=== PATIENT | female | born 1970 | race Caucasian/White ===

== ENCOUNTER 2016-10-13 08:46 | Emergency (ER) | payer MEDICAID ==
[~2016-10-13] VITALS: Ht 157.5 cm; Wt 78.9 kg
[~2016-10-13 08:46] MED LIST: METH40TA14
[2016-10-13 08:49] VITALS: BP_SYST 195
--- NOTE | 2016-10-13 08:55 | NUR ---
Patient to ER bed 3 to gown for evaluation. Side rails up. Report given to Monique LANDEROS.
--- NOTE | 2016-10-13 08:59 | NUR ---
ER Dr. Duong at bedside examining patient.
--- NOTE | 2016-10-13 09:00 | NUR ---
Stable condition, alert and oriented x4. States took blood pressure last night and systolic was around 185 and that she has been feeling bloated since she has not been taking blood pressure medication (hydrochlorathiazide). Also states believes she "has a UTI" due to urinary frequency. Denies urinary retention, burning/pain with urination or hematuria. No other complaints/injuries per patient or noted. Addendum: 10/13/16 at 0901 by SIRI states has not taking medication for about a week
[2016-10-13] MEDS ORDERED: cloNIDine HCL 0.1 MG TABLET PO ONE (09:15)
[2016-10-13 09:32] LABS: BILIRUBIN,URINE NEGATIVE (NEGATIVE); BLOOD, URINE NEGATIVE (NEGATIVE); CLARITY/URINE CLEAR (CLEAR); COLOR,URINE YELLOW (YELLOW); GLUCOSE,URINE NEGATIVE (NEGATIVE); KETONES,URINE NEGATIVE (NEGATIVE); LEUKOCYTE ESTERASE ,URINE NEGATIVE (NEGATIVE); NITRITE, URINE NEGATIVE (NEGATIVE); PH,URINE 7.5 (5.0-8.0); PROTEIN URINE NEGATIVE (NEGATIVE); UROBILINOGEN,URINE 0.2 (0.2-1.0)
[2016-10-13 09:50] LABS: BARBITURATE, URINE NEGATIVE (NEG <=200); BENZODIAZEPINE, URINE NEGATIVE (NEG <=150); CANNABINOID, URINE NEGATIVE (NEG <=50); COCAINE, URINE NEGATIVE (NEG <=150); METHAMPHETAMINES SCREEN,URINE POSITIVE (NEG <=500); OPIATE, URINE NEGATIVE (NEG <=100); PHENCYCLIDINE SCREEN,URINE NEGATIVE (NEG <=25); UR TRICYCLIC ANTIDEPRESSANTS NEGATIVE (NEG <=300); URINE AMPHETAMINE POSITIVE (NEG <=500); URINE METHADONE POSITIVE (NEG <=200); URINE OXYCODONE SCREEN NEGATIVE (NEG <=100); URINE PROPOXYPHENE SCREEN NEGATIVE (NEG <=300)
--- NOTE | 2016-10-13 10:54 | NUR ---
Patient given written and verbal discharge instructions and verbalizes understanding. ER MD discussed with patient the results and treatment provided. Given copies of tests performed in ER. Patient in stable condition. ID arm band removed. Rx of Lisinopril given. Patient educated on pain management and to follow up with PMD. Pain Scale 0/10. Opportunity for questions provided and answered. Addendum: 10/13/16 at 1058 by CARMINE Patient was also counseled at length about the dangers of methamphetamine, and its impact on HTN. Advised to follow with PCP for BP management.
[2016-10-13 10:56] VITALS: BP_SYST 178
== END 2016-10-13 10:56 | disposition home or self-care (01) ==
LOC: SED 08:46
DX: I10 Essential (primary) hypertension (principal); F15.10 Other stimulant abuse, uncomplicated; M19.90 Unspecified osteoarthritis, unspecified site; Z86.14 Personal history of Methicillin resistant Staphylococcus aureus infection
CPT/HCPCS: 80307; 81003; 81025; 99283; 99284

== ENCOUNTER 2018-08-17 18:21 | Emergency (ER) | payer MEDICAID ==
[~2018-08-17] VITALS: Ht 157.5 cm; Wt 79.4 kg
[~2018-08-17 18:21] MED LIST changes: +HYDR25TA4 PO; +LISI30TA36 PO; +METH40TA14 PO
[2018-08-17 19:28] VITALS: BP_SYST 142
== END 2018-08-17 22:01 | disposition left against medical advice (07) ==
LOC: SED 18:21
DX: L02.416 Cutaneous abscess of left lower limb (principal); Z53.21 Procedure and treatment not carried out due to patient leaving prior to being seen by health care provider

== ENCOUNTER 2018-09-18 18:03 | Emergency (ER) | payer MEDICAID ==
[~2018-09-18] VITALS: Ht 157.5 cm; Wt 78.9 kg
[2018-09-18 18:12] VITALS: BP_SYST 120
[2018-09-18] MEDS ORDERED: NACL 0.9% 1,000 ML IV ONE (18:21)
[2018-09-18] MEDS ORDERED: cefTRIAXone 1 GM IVPB PREMIX 50 ML IV ONE (18:30)
[2018-09-18] MEDS: ONDANSETRON HCL 4 MG/2 ML VIAL IVP ONE ×2 (18:59→19:07)
[2018-09-18] MEDS: MORPHINE 4 MG/ML INJ. SYRINGE IVP ONE ×2 (18:59→19:07)
[2018-09-18 19:10] LABS: BILIRUBIN,URINE NEGATIVE (NEGATIVE); BLOOD, URINE NEGATIVE (NEGATIVE); COLOR,URINE YELLOW (YELLOW); GLUCOSE,URINE NEGATIVE (NEGATIVE); KETONES,URINE TRACE (NEGATIVE); NITRITE, URINE POSITIVE (NEGATIVE); PH,URINE 5.5 (5.0-8.0); PROTEIN URINE NEGATIVE (NEGATIVE); UROBILINOGEN,URINE 0.2 (0.2-1.0)
[2018-09-18 19:20] LABS: BASOPHILS % (AUTO) 0.5 % (0.0-2.0); EOSINOPHILS % (AUTO) 0.3 % (0.0-4.0); HEMATOCRIT 35.5 % (36-48); HEMOGLOBIN 11.4 g/dL (12.0-16.0); LYMPHOCYTES % (AUTO) 12.7 % (20.5-51.5); MEAN CORPUSCULAR HEMOGLOBIN 22 pg (27-31); MEAN CORPUSCULAR HGB CONC 32 % (32-36); MEAN CORPUSCULAR VOLUME 67 fL (79.0-98.0); MONOCYTES # (AUTO) 1.1 K/uL (0.0-1.0); MONOCYTES % (AUTO) 7.1 % (1.7-9.3); NEUTROPHILS # (AUTO) 12.6 K/uL (1.8-7.7); NEUTROPHILS % (AUTO) 79.4 % (40.0-70.0); PLATELET COUNT (AUTO) 414 K/uL (130-430); RED BLOOD CELL COUNT(AUTO) 5.27 MIL/uL (4.2-6.2); RED CELL DISTRIBUTION WIDTH 19.7 % (9.0-15.0); WHITE BLOOD COUNT (AUTO) 15.8 K/uL (4.8-10.8)
[2018-09-18 19:21] LABS: BASOPHILS # (AUTO) 0.1 K/uL (0.0-0.2)
[2018-09-18 19:24] LABS: CLARITY/URINE HAZY (CLEAR); LEUKOCYTE ESTERASE ,URINE TRACE (NEGATIVE)
[2018-09-18 19:25] LABS: BACTERIA,URINE MODERATE /HPF (None Seen); MUCUS,URINE 1+ /LPF (None Seen); RBC,URINE NONE SEEN /HPF (0-3)
[2018-09-18 19:25] LABS: ANION GAP 6 (5-15); CHLORIDE 92 mmol/L (98-107); GLUCOSE 109 mg/dL (70-99); POTASSIUM 3.1 mmol/L (3.5-5.1); PROTHROMBIN TIME 10.5 SECS (9.5-12.5); SODIUM SERUM 127 mmol/L (136-145); UREA NITROGEN, BLOOD 9 mg/dL (8-21)
[2018-09-18 19:26] LABS: BARBITURATE, URINE NEGATIVE (NEG <=200); BENZODIAZEPINE, URINE POSITIVE (NEG <=150); CANNABINOID, URINE NEGATIVE (NEG <=50); COCAINE, URINE NEGATIVE (NEG <=150); METHAMPHETAMINES SCREEN,URINE POSITIVE (NEG <=500); PHENCYCLIDINE SCREEN,URINE NEGATIVE (NEG <=25); URINE AMPHETAMINE POSITIVE (NEG <=500); URINE METHADONE NEGATIVE (NEG <=200)
[2018-09-18 19:27] LABS: OPIATE, URINE POSITIVE (NEG <=100); UR TRICYCLIC ANTIDEPRESSANTS NEGATIVE (NEG <=300); URINE OXYCODONE SCREEN NEGATIVE (NEG <=100); URINE PROPOXYPHENE SCREEN NEGATIVE (NEG <=300)
[2018-09-18 19:28] LABS: GFR AFRICAN AMERICAN 98 mL/min (>90)
[2018-09-18 19:29] LABS: ALANINE AMINOTRANSFERASE 30 U/L (12-78); ALBUMIN 3.7 g/dL (3.4-4.8); AMYLASE 23 U/L (0-100); ASPARTATE AMINOTRANSFERASE 22 U/L (10-37); LIPASE 43 U/L (73-393); TOTAL BILIRUBIN 0.7 mg/dL (0.0-1.0)
[2018-09-18 19:36] LABS: ALCOHOL, BLOOD < 3 mg/dL (<10)
[2018-09-18] MEDS ORDERED: VANCOMYCIN HCL 1,000 MG in NS 250 ML IV ONE (21:30)
[2018-09-18] MEDS ORDERED: VANCOMYCIN HCL 1000 MG/VIAL IV ONE (22:14)
[2018-09-19] MEDS ORDERED: POTASSIUM CHLORIDE 20 MEQ TAB.PRT.SR PO ONE (00:15)
[2018-09-19] MEDS ORDERED: CLINDAMYCIN HCL 150 MG CAPSULE PO ONE (00:30)
[2018-09-19 00:56] VITALS: BP_SYST 120
== END 2018-09-19 00:56 | disposition home or self-care (01) ==
LOC: SED 18:03
DX: K43.9 Ventral hernia without obstruction or gangrene (principal); L03.114 Cellulitis of left upper limb; N39.0 Urinary tract infection, site not specified; F19.10 Other psychoactive substance abuse, uncomplicated; F17.200 Nicotine dependence, unspecified, uncomplicated; I10 Essential (primary) hypertension; M19.90 Unspecified osteoarthritis, unspecified site; Z90.49 Acquired absence of other specified parts of digestive tract; Z79.899 Other long term (current) drug therapy
CPT/HCPCS: 36415; 71045; 80053; 80307; 81000; 81025; 82150; 82550; 83605; 83690; 84484; 85025; 85610; 85730; 87040; 87086; 93005; 96365; 99284; G0482; J0696; J2405; J3370; J7030; J2270

== ENCOUNTER 2019-05-05 22:51 | Emergency (ER) | payer MEDICAID ==
[~2019-05-05] VITALS: Ht 157.5 cm; Wt 74.4 kg
[2019-05-05 22:55] VITALS: BP_SYST 148
--- NOTE | 2019-05-05 22:55 | NUR ---
Patient triaged and placed in waiting room. VSS and patient appears in no acute distress at this time. Accompanied by DAUGTHER, awaiting available bed, and MD notified of need for MSE.
--- NOTE | 2019-05-06 00:42 | NUR ---
Urine HCG done, results negative.
[2019-05-06 01:12] LABS: BILIRUBIN,URINE NEGATIVE (NEGATIVE); BLOOD, URINE NEGATIVE (NEGATIVE); CLARITY/URINE CLEAR (CLEAR); COLOR,URINE YELLOW (YELLOW); GLUCOSE,URINE NEGATIVE (NEGATIVE); KETONES,URINE NEGATIVE (NEGATIVE); LEUKOCYTE ESTERASE ,URINE 1+ (NEGATIVE); NITRITE, URINE NEGATIVE (NEGATIVE); PROTEIN URINE NEGATIVE (NEGATIVE); UROBILINOGEN,URINE 0.2 (0.2-1.0)
[2019-05-06 01:26] LABS: BACTERIA,URINE MANY /HPF (None Seen); RBC,URINE 0-3 /HPF (0-3)
--- NOTE | 2019-05-06 02:57 | NUR ---
Patient to ER bed 7 to gown for evaluation. Side rails up. Report given to Juan LANDEROS.
[2019-05-06] MEDS ORDERED: NITROFURANTOIN MONOHYD/M-CRYST 100 MG CAPSULE PO ONE ×2 (03:00→03:26)
--- NOTE | 2019-05-06 03:40 | NUR ---
ER at bedside examining patient.
--- NOTE | 2019-05-06 03:45 | NUR ---
Pt BIB family to ED C/O dysuria, urinary urgency and frequency. She denied vomiting, flank pain, fever, shortness of breath, chest pain, abdominal pain, dizziness and syncope. No other injuries and or complaints noted VSS no s/s of acute distress. Resting on gurney rails up
[2019-05-06 04:15] VITALS: BP_SYST 148
--- NOTE | 2019-05-06 04:15 | NUR ---
Patient given written and verbal discharge instructions and verbalizes understanding. ER MD discussed with patient the results and treatment provided. Patient in stable condition. ID arm band removed. Rx of Macrobid given. Patient educated on pain management and to follow up with PMD. Pain Scale 0/10 Opportunity for questions provided and answered. Medication side effect fact sheet provided.
== END 2019-05-06 04:15 | disposition home or self-care (01) ==
LOC: SED 22:51
DX: N39.0 Urinary tract infection, site not specified (principal); I10 Essential (primary) hypertension; Z79.899 Other long term (current) drug therapy
CPT/HCPCS: 81000-TC; 81025; 87086; 87186-TC; 99283

== ENCOUNTER 2024-02-16 20:42 | Inpatient (IN) | payer MEDICAID ==
[~2024-02-16] VITALS: Ht 157.5 cm; Wt 91.2 kg
[~2024-02-16 20:42] MED LIST changes: -METH40TA14; -METH40TA14 PO; +METH40TA2; +METH40TA2 PO
[2024-02-16 21:00] VITALS: BP_SYST 170; PULSE 95; RESP 18; TEMP 97.2; O2SAT 98
[2024-02-16 21:51] LABS: BASOPHILS # (AUTO) 0.1 K/uL (0.0-0.2); BASOPHILS % (AUTO) 0.7 % (0.0-2.0); EOSINOPHILS % (AUTO) 0.4 % (0.0-4.0); HEMATOCRIT 39.4 % (36-48); HEMOGLOBIN 13.3 g/dL (12.0-16.0); LYMPHOCYTES # (AUTO) 2.2 K/uL (1.0-5.5); LYMPHOCYTES % (AUTO) 21.7 % (20.5-51.5); MEAN CORPUSCULAR HEMOGLOBIN 28 pg (27-31); MEAN CORPUSCULAR HGB CONC 34 % (32-36); MEAN CORPUSCULAR VOLUME 82 fL (79.0-98.0); MONOCYTES % (AUTO) 9.8 % (1.7-9.3); NEUTROPHILS # (AUTO) 6.7 K/uL (1.8-7.7); NEUTROPHILS % (AUTO) 67.4 % (40.0-70.0); PLATELET COUNT (AUTO) 361 K/uL (130-430); RED BLOOD CELL COUNT(AUTO) 4.79 MIL/uL (4.2-6.2); RED CELL DISTRIBUTION WIDTH 14.9 % (9.0-15.0); WHITE BLOOD COUNT (AUTO) 9.9 K/uL (4.8-10.8)
[2024-02-16 22:18] LABS: ALBUMIN 3.4 g/dL (3.4-4.8); ANION GAP 9 (5-15); ASPARTATE AMINOTRANSFERASE 14 U/L (10-37); CALCIUM 9.9 mg/dL (8.4-11.0); CARBON DIOXIDE 30 mmol/L (23-29); CHLORIDE 98 mmol/L (98-107); CREATININE 0.61 mg/dL (0.55-1.30); GFR AFRICAN AMERICAN 131 mL/min (>90); GLUCOSE 109 mg/dL (74-106); POTASSIUM 3.8 mmol/L (3.5-5.1); SODIUM SERUM 137 mmol/L (136-145); TOTAL BILIRUBIN 0.3 mg/dL (0.0-1.0); TOTAL PROTEIN, SERUM 8.2 g/dL (6.4-8.3); UREA NITROGEN, BLOOD 8 mg/dL (8-21)
[2024-02-16 22:38] LABS: ALANINE AMINOTRANSFERASE 16 U/L (12-78)
[2024-02-16 22:42] LABS: GFR NON AFRICAN-AMERICAN 108 mL/min (>90)
[2024-02-16] MEDS ORDERED: LISINOPRIL 10 MG TABLET (PRINIVIL) ONE ×2 (23:26→23:40)
[2024-02-16] MEDS: LISINOPRIL 10 MG TABLET (PRINIVIL) PO ONE (23:49)
[2024-02-17] VITALS (8 sets, daily range): BP systolic 161–213; PULSE 84–120; RESP 16–22; TEMP 96–98.6; O2SAT 93–98
[2024-02-17] MEDS: hydrALAZINE HCL 20 MG/ML VIAL IM ONE (01:33)
[2024-02-17] MEDS: LABETALOL HCL 20 MG/4 ML CARTRIDGE IVP ONE (02:14)
[2024-02-17] MEDS: BUPRENORPHINE HCL/NALOXONE HCL 2-0.5 MG 1 EACH TAB.SUBL SL ONE (02:33)
[2024-02-17 02:46] LABS: BARBITURATE, URINE NEGATIVE (NEG <=200); BENZODIAZEPINE, URINE NEGATIVE (NEG <=150); CANNABINOID, URINE NEGATIVE (NEG <=50); COCAINE, URINE NEGATIVE (NEG <=150); METHAMPHETAMINES SCREEN,URINE POSITIVE (NEG <=500); OPIATE, URINE NEGATIVE (NEG <=100); PHENCYCLIDINE SCREEN,URINE NEGATIVE (NEG <=25); UR TRICYCLIC ANTIDEPRESSANTS NEGATIVE (NEG <=300); URINE AMPHETAMINE POSITIVE (NEG <=500); URINE METHADONE NEGATIVE (NEG <=200); URINE OXYCODONE SCREEN NEGATIVE (NEG <=100)
[2024-02-17] MEDS: HALOPERIDOL LACTATE 5 MG/ML VIAL IVP ONE (03:44)
[2024-02-17] MEDS: DIPHENHYDRAMINE INJ 50 MG/ML VIAL IVP ONE (03:44)
[2024-02-17] MEDS ORDERED: LOSA25TA18 PO (04:48)
[2024-02-17] MEDS: LORazepam 2 MG/ML VIAL IVP PRN (05:50)
[2024-02-17] MEDS: hydrALAZINE HCL 25 MG TABLET PO PRN (05:50)
[2024-02-17 07:08] LABS: BILIRUBIN,URINE NEGATIVE (NEGATIVE); BLOOD, URINE NEGATIVE (NEGATIVE); CLARITY/URINE CLEAR (CLEAR); COLOR,URINE YELLOW (YELLOW); GLUCOSE,URINE NEGATIVE (NEGATIVE); KETONES,URINE NEGATIVE (NEGATIVE); LEUKOCYTE ESTERASE ,URINE NEGATIVE (NEGATIVE); NITRITE, URINE NEGATIVE (NEGATIVE); PH,URINE 6.5 (5.0-8.0); PROTEIN URINE NEGATIVE (NEGATIVE); UROBILINOGEN,URINE 0.2 (0.2-1.0)
[2024-02-17] MEDS ORDERED: HYDROcodone/ACETAMIN 5-325 MG TAB (NORCO/ VICODIN) PO PRN (10:15)
[2024-02-17] MEDS ORDERED: NALOXONE HCL 0.4 MG/ML AMP (NARCAN) IVP PRN ×2 (10:15)
[2024-02-17] MEDS ORDERED: METHADONE HCL 10 MG TABLET PO SCH (10:30)
[2024-02-17] MEDS ORDERED: ACETAMINOPHEN 325 MG TABLET PO PRN (11:30)
[2024-02-17] MEDS: HYDROCHLOROTHIAZIDE 25 MG TABLET (HCTZ) PO ONE (11:56)
[2024-02-17] MEDS: LOSARTAN POTASSIUM 25 MG TABLET PO ONE (11:57)
[2024-02-17 13:14] LABS: BASOPHILS % (AUTO) 0.2 % (0.0-2.0); HEMATOCRIT 43.7 % (36-48); HEMOGLOBIN 14.8 g/dL (12.0-16.0); LYMPHOCYTES % (AUTO) 7.2 % (20.5-51.5); MEAN CORPUSCULAR HEMOGLOBIN 28 pg (27-31); MEAN CORPUSCULAR HGB CONC 34 % (32-36); MEAN CORPUSCULAR VOLUME 82 fL (79.0-98.0); MONOCYTES # (AUTO) 0.6 K/uL (0.0-1.0); MONOCYTES % (AUTO) 4.5 % (1.7-9.3); NEUTROPHILS # (AUTO) 12.3 K/uL (1.8-7.7); NEUTROPHILS % (AUTO) 88.1 % (40.0-70.0); PLATELET COUNT (AUTO) 452 K/uL (130-430); RED BLOOD CELL COUNT(AUTO) 5.36 MIL/uL (4.2-6.2); RED CELL DISTRIBUTION WIDTH 14.7 % (9.0-15.0)
[2024-02-17 13:25] LABS: CREATININE 0.66 mg/dL (0.55-1.30)
[2024-02-17 13:31] LABS: POTASSIUM 2.9 mmol/L (3.5-5.1)
[2024-02-17] MEDS: POTASSIUM CHLORIDE 40 MEQ, LIDOCAINE JECT 2% PF 100 MG 75 MG in NS 250 ML IV ONE (15:59)
[2024-02-17] MEDS: NORMAL SALINE 5 ML DISP.SYRIN IVF SCH (15:59)
[2024-02-17] MEDS ORDERED: LABETALOL HCL 20 MG/4 ML CARTRIDGE IVP PRN (17:15)
[2024-02-17] MEDS: ONDANSETRON HCL 4 MG/2 ML VIAL IVP PRN (18:06)
[2024-02-17] MEDS: hydrALAZINE HCL 20 MG/ML VIAL IVP PRN (18:10)
[2024-02-17] MEDS: NIFEdipine 30 MG TAB.ER.24 PO ONE (18:11)
[2024-02-17] MEDS ORDERED: lisinopriL 20 MG TABLET PO SCH (21:00)
[2024-02-17] MEDS: LOSARTAN POTASSIUM 50 MG TABLET (COZAAR) PO SCH (21:56)
[2024-02-17] MEDS: HYDROcodone/ACETAMIN 10-325 MG TAB PO PRN (21:57)
[2024-02-18] VITALS (8 sets, daily range): BP systolic 94–215; PULSE 84–99; RESP 18–35; TEMP 97.1–98.9; O2SAT 93–98
[2024-02-18] MEDS: D5/0.45 NS 1,000 ML IV SCH (00:15)
[2024-02-18 08:15] LABS: BASOPHILS % (AUTO) 0.2 % (0.0-2.0); HEMATOCRIT 44.6 % (36-48); HEMOGLOBIN 15.1 g/dL (12.0-16.0); LYMPHOCYTES # (AUTO) 2.4 K/uL (1.0-5.5); MEAN CORPUSCULAR HEMOGLOBIN 28 pg (27-31); MEAN CORPUSCULAR HGB CONC 34 % (32-36); MEAN CORPUSCULAR VOLUME 82 fL (79.0-98.0); MONOCYTES # (AUTO) 1.8 K/uL (0.0-1.0); MONOCYTES % (AUTO) 10.9 % (1.7-9.3); NEUTROPHILS # (AUTO) 12.6 K/uL (1.8-7.7); NEUTROPHILS % (AUTO) 74.9 % (40.0-70.0); PLATELET COUNT (AUTO) 515 K/uL (130-430); RED BLOOD CELL COUNT(AUTO) 5.42 MIL/uL (4.2-6.2); WHITE BLOOD COUNT (AUTO) 16.9 K/uL (4.8-10.8)
[2024-02-18 08:51] LABS: ALBUMIN 3.4 g/dL (3.4-4.8); CALCIUM 10.1 mg/dL (8.4-11.0); CREATININE 0.59 mg/dL (0.55-1.30); TOTAL BILIRUBIN 0.6 mg/dL (0.0-1.0); TOTAL PROTEIN, SERUM 8.7 g/dL (6.4-8.3)
[2024-02-18] MEDS ORDERED: LOSARTAN POTASSIUM 25 MG TABLET PO SCH (09:00)
[2024-02-18] MEDS: NIFEdipine 30 MG TAB.ER.24 PO SCH (10:43)
[2024-02-18] MEDS: HYDROCHLOROTHIAZIDE 25 MG TABLET (HCTZ) PO SCH (10:47)
[2024-02-18 11:52] LABS: CKMB RELATIVE INDEX 0.8 (0.0-2.9)
[2024-02-18] MEDS: LABETALOL HCL 100 MG TABLET PO ONE (16:28)
[2024-02-18] MEDS: NIFEdipine 30 MG TAB.ER.24 PO ONE (16:29)
[2024-02-18] MEDS: LABETALOL HCL 100 MG TABLET PO SCH (20:17)
[2024-02-18] MEDS: SPIRONOLACTONE 25 MG TABLET (ALDACTONE) PO SCH (20:19)
[2024-02-18] MEDS: POTASSIUM CHLORIDE 40 MEQ in NS 250 ML IV ONE (22:10)
[2024-02-19 00:23] VITALS: BP_SYST 146; PULSE 89; RESP 16; TEMP 97.4; O2SAT 95
[2024-02-19 00:23] LABS: BILIRUBIN,URINE NEGATIVE (NEGATIVE); COLOR,URINE YELLOW (YELLOW); GLUCOSE,URINE 1+ (NEGATIVE); KETONES,URINE TRACE (NEGATIVE); LEUKOCYTE ESTERASE ,URINE NEGATIVE (NEGATIVE); NITRITE, URINE NEGATIVE (NEGATIVE); PH,URINE 6.5 (5.0-8.0); PROTEIN URINE 1+ (NEGATIVE); UROBILINOGEN,URINE 0.2 (0.2-1.0)
[2024-02-19 00:36] LABS: BLOOD, URINE TRACE (NEGATIVE); CLARITY/URINE SLIGHTLY CLOUDY (CLEAR)
[2024-02-19 00:46] LABS: WBC,URINE 0-3 /HPF (0-3)
[2024-02-19 00:47] LABS: BACTERIA,URINE MODERATE /HPF (None Seen)
[2024-02-19 08:24] LABS: BASOPHILS % (AUTO) 0.1 % (0.0-2.0); EOSINOPHILS % (AUTO) 0.1 % (0.0-4.0); HEMOGLOBIN 14.8 g/dL (12.0-16.0); LYMPHOCYTES # (AUTO) 3.1 K/uL (1.0-5.5); LYMPHOCYTES % (AUTO) 19.5 % (20.5-51.5); MEAN CORPUSCULAR HEMOGLOBIN 28 pg (27-31); MEAN CORPUSCULAR HGB CONC 34 % (32-36); MEAN CORPUSCULAR VOLUME 82 fL (79.0-98.0); MONOCYTES # (AUTO) 1.6 K/uL (0.0-1.0); MONOCYTES % (AUTO) 9.8 % (1.7-9.3); NEUTROPHILS # (AUTO) 11.4 K/uL (1.8-7.7); NEUTROPHILS % (AUTO) 70.5 % (40.0-70.0); PLATELET COUNT (AUTO) 479 K/uL (130-430); RED BLOOD CELL COUNT(AUTO) 5.38 MIL/uL (4.2-6.2); RED CELL DISTRIBUTION WIDTH 14.6 % (9.0-15.0); WHITE BLOOD COUNT (AUTO) 16.2 K/uL (4.8-10.8)
[2024-02-19 08:29] LABS: CALCIUM 9.2 mg/dL (8.4-11.0); CREATININE 0.61 mg/dL (0.55-1.30); POTASSIUM 3.1 mmol/L (3.5-5.1)
[2024-02-19] MEDS: NIFEDIPINE 90 MG TABLET.SA (PROCARDIA XL 90 MG) PO SCH (08:41)
[2024-02-19 08:57] LABS: ERYTHROCYTE SEDIMENTATION RATE 64 MM/HR (0-20)
[2024-02-19 09:00] VITALS: BP_SYST 92; PULSE 99; RESP 18; TEMP 97.7; O2SAT 96
[2024-02-19 09:35] VITALS: O2SAT 95
[2024-02-19 11:28] VITALS: BP_SYST 154; PULSE 85; RESP 18; TEMP 97.9; O2SAT 98
[2024-02-19 16:07] VITALS: BP_SYST 151; PULSE 81; RESP 18; TEMP 97.6; O2SAT 98
[2024-02-19 20:15] VITALS: BP_SYST 183; PULSE 79; RESP 18; TEMP 97.7; O2SAT 96
[2024-02-19] MEDS: DOCUSATE SODIUM 100 MG CAPSULE PO PRN (21:51)
[2024-02-20 00:26] VITALS: BP_SYST 147; PULSE 80; RESP 17; TEMP 97.4; O2SAT 96
[2024-02-20 06:49] LABS: BASOPHILS % (AUTO) 0.3 % (0.0-2.0); EOSINOPHILS % (AUTO) 0.3 % (0.0-4.0); HEMATOCRIT 42.4 % (36-48); HEMOGLOBIN 14.3 g/dL (12.0-16.0); LYMPHOCYTES # (AUTO) 3.2 K/uL (1.0-5.5); LYMPHOCYTES % (AUTO) 21.1 % (20.5-51.5); MEAN CORPUSCULAR HEMOGLOBIN 27 pg (27-31); MEAN CORPUSCULAR HGB CONC 34 % (32-36); MEAN CORPUSCULAR VOLUME 82 fL (79.0-98.0); MONOCYTES # (AUTO) 1.4 K/uL (0.0-1.0); MONOCYTES % (AUTO) 9.5 % (1.7-9.3); NEUTROPHILS # (AUTO) 10.4 K/uL (1.8-7.7); NEUTROPHILS % (AUTO) 68.8 % (40.0-70.0); PLATELET COUNT (AUTO) 500 K/uL (130-430); RED CELL DISTRIBUTION WIDTH 15.1 % (9.0-15.0); WHITE BLOOD COUNT (AUTO) 15.1 K/uL (4.8-10.8)
[2024-02-20 07:03] LABS: CALCIUM 8.9 mg/dL (8.4-11.0); CREATININE 0.64 mg/dL (0.55-1.30); POTASSIUM 3.2 mmol/L (3.5-5.1); TOTAL BILIRUBIN 0.3 mg/dL (0.0-1.0); TOTAL PROTEIN, SERUM 7.2 g/dL (6.4-8.3)
[2024-02-20 07:30] VITALS: BP_SYST 133; PULSE 94; RESP 14; TEMP 97.7; O2SAT 95
[2024-02-20 07:46] LABS: ERYTHROCYTE SEDIMENTATION RATE 56 MM/HR (0-20)
[2024-02-20] MEDS ORDERED: hydrALAZINE HCL 25 MG TABLET PO PRN (10:15)
[2024-02-20] MEDS: POTASSIUM CHLORIDE 20 MEQ TABLET.ER PO ONE (10:52)
[2024-02-20 11:26] VITALS: BP_SYST 157; PULSE 98; RESP 15; TEMP 97.9; O2SAT 99
[2024-02-20 16:15] VITALS: BP_SYST 143; PULSE 95; RESP 14; TEMP 97.4; O2SAT 97
[2024-02-20 20:20] VITALS: BP_SYST 142; PULSE 102; RESP 18; TEMP 98.4; O2SAT 97
[2024-02-21] VITALS: BP_SYST 143; PULSE 92; RESP 17; TEMP 98.2; O2SAT 95
[2024-02-21 07:30] VITALS: BP_SYST 145; PULSE 89; RESP 14; TEMP 97.8; O2SAT 96
[2024-02-21] MEDS ORDERED: NIFE90TA24 PO (07:59)
[2024-02-21] MEDS ORDERED: LOSA25TA18 PO (07:59)
[2024-02-21] MEDS ORDERED: DOCU-144 PO (07:59)
[2024-02-21] MEDS ORDERED: SPIR25TA PO (07:59)
[2024-02-21 08:24] LABS: BASOPHILS % (AUTO) 0.3 % (0.0-2.0); EOSINOPHILS % (AUTO) 0.1 % (0.0-4.0); HEMATOCRIT 42.6 % (36-48); HEMOGLOBIN 14.3 g/dL (12.0-16.0); LYMPHOCYTES # (AUTO) 2.3 K/uL (1.0-5.5); MEAN CORPUSCULAR HEMOGLOBIN 27 pg (27-31); MEAN CORPUSCULAR HGB CONC 34 % (32-36); MEAN CORPUSCULAR VOLUME 82 fL (79.0-98.0); MONOCYTES # (AUTO) 1.4 K/uL (0.0-1.0); MONOCYTES % (AUTO) 9.1 % (1.7-9.3); NEUTROPHILS # (AUTO) 11.7 K/uL (1.8-7.7); NEUTROPHILS % (AUTO) 75.5 % (40.0-70.0); PLATELET COUNT (AUTO) 499 K/uL (130-430); RED BLOOD CELL COUNT(AUTO) 5.23 MIL/uL (4.2-6.2); RED CELL DISTRIBUTION WIDTH 15.4 % (9.0-15.0); WHITE BLOOD COUNT (AUTO) 15.5 K/uL (4.8-10.8)
[2024-02-21 08:36] LABS: ERYTHROCYTE SEDIMENTATION RATE 65 MM/HR (0-20)
[2024-02-21 08:50] LABS: CALCIUM 9.3 mg/dL (8.4-11.0); CREATININE 0.59 mg/dL (0.55-1.30); POTASSIUM 3.8 mmol/L (3.5-5.1)
[2024-02-21 12:00] VITALS: BP_SYST 132; PULSE 75; RESP 14; TEMP 98.3; O2SAT 98
[2024-02-21 16:00] VITALS: BP_SYST 148; PULSE 81; RESP 16; TEMP 98.9
[2024-02-21] MEDS: BISACODYL 5 MG TABLET.DR (DULCOLAX) PO PRN (16:58)
[2024-02-21 20:00] VITALS: BP_SYST 133; PULSE 96; RESP 20; TEMP 97.6; O2SAT 98
[2024-02-21 20:15] VITALS: O2SAT 96
[2024-02-21] MEDS: ACETAMINOPHEN 325 MG TABLET PO PRN (21:36)
[2024-02-22 05:01] VITALS: RESP 20; TEMP 97.6
[2024-02-22 07:30] VITALS: BP_SYST 137; PULSE 86; RESP 14; TEMP 97.4; O2SAT 99
[2024-02-22 09:49] LABS: CALCIUM 9.3 mg/dL (8.4-11.0); CREATININE 0.71 mg/dL (0.55-1.30)
[2024-02-22 10:18] LABS: BASOPHILS # (AUTO) 0.1 K/uL (0.0-0.2); BASOPHILS % (AUTO) 0.4 % (0.0-2.0); EOSINOPHILS % (AUTO) 0.2 % (0.0-4.0); HEMATOCRIT 41.5 % (36-48); LYMPHOCYTES # (AUTO) 2.8 K/uL (1.0-5.5); LYMPHOCYTES % (AUTO) 17.3 % (20.5-51.5); MEAN CORPUSCULAR HEMOGLOBIN 28 pg (27-31); MEAN CORPUSCULAR HGB CONC 34 % (32-36); MEAN CORPUSCULAR VOLUME 82 fL (79.0-98.0); MONOCYTES # (AUTO) 1.1 K/uL (0.0-1.0); MONOCYTES % (AUTO) 6.9 % (1.7-9.3); NEUTROPHILS # (AUTO) 12.1 K/uL (1.8-7.7); NEUTROPHILS % (AUTO) 75.2 % (40.0-70.0); PLATELET COUNT (AUTO) 552 K/uL (130-430); RED BLOOD CELL COUNT(AUTO) 5.08 MIL/uL (4.2-6.2); RED CELL DISTRIBUTION WIDTH 14.7 % (9.0-15.0); WHITE BLOOD COUNT (AUTO) 16.1 K/uL (4.8-10.8)
[2024-02-22 10:23] LABS: ERYTHROCYTE SEDIMENTATION RATE 69 MM/HR (0-20)
[2024-02-22] MEDS ORDERED: LEVO-62 PO (11:56)
[2024-02-22] MEDS ORDERED: MELA5TAB12 PO (11:56)
[2024-02-22 12:41] VITALS: BP_SYST 141; PULSE 81; RESP 18; TEMP 97.8; O2SAT 99
[2024-02-22 12:56] VITALS: BP_SYST 141; PULSE 81; RESP 18; TEMP 97.8; O2SAT 99
== END 2024-02-22 14:10 | disposition left against medical advice (07) | DRG 52 ==
LOC: SED 20:42 → STU 02-17 04:07 → SMU 02-20 10:49
PROVIDERS: ADMIT Preventive Medicine Preventive Medicine/Occupational Environmental Medicine; ATTEND Preventive Medicine Preventive Medicine/Occupational Environmental Medicine
DX: G92.8 Other toxic encephalopathy (principal); E87.1 Hypo-osmolality and hyponatremia; E88.09 Other disorders of plasma-protein metabolism, not elsewhere classified; E87.6 Hypokalemia; I16.0 Hypertensive urgency; D75.839 Thrombocytosis, unspecified; D72.829 Elevated white blood cell count, unspecified; F15.10 Other stimulant abuse, uncomplicated; F19.10 Other psychoactive substance abuse, uncomplicated; F11.10 Opioid abuse, uncomplicated; Z86.14 Personal history of Methicillin resistant Staphylococcus aureus infection; I10 Essential (primary) hypertension; Z90.710 Acquired absence of both cervix and uterus; Z79.899 Other long term (current) drug therapy; Z88.8 Allergy status to other drugs, medicaments and biological substances; R73.9 Hyperglycemia, unspecified
CPT/HCPCS: 36415; 71045; 80048; 80053; 80307; 81000; 81001; 81003; 81015; 82550; 82553; 83880; 84484; 85025; 85651; 87040; 87086; 93005; 93306; 97110-GP; 97116-GP; 97530-GP; 99285; G0378; J0360; J0696; J1200; J1630; J2060; J2405; J3480; J7050; J7060